=== PATIENT | male | born 1960 | race Caucasian/White ===

== ENCOUNTER → 2016-03-17 | Outpatient (CLI) | payer OTHER ==
[~2016-03-17] MED LIST: AMIT75 PO; ARIP15TA3 PO; ASPI-1061 PO; BRIM15DR8 OU; BRIM15OS OU; BUME1TAB30 PO; CARV12 PO; DAPT500I IVP; DORZ210OS OP; DOXY100C PO; FOLI1 PO; FURO20 PO; GABA-531 PO; INSLAN SQ; INSNOV SQ; IPRA4AER IH; ISOS20TA9 PO; LATA2.5D2 OU; MACR100 PO; MAXIO OD; METR500 PO; OMEP20 PO; SERT50TA12 PO; SIMV-260 PO; SPIR25 PO; SULF-168 PO; VITAD1000 PO
[2016-03-17 14:02] VITALS: BP 124/80
== END | disposition home or self-care (01) ==
LOC: HBOWC 13:00
PROVIDERS: ATTEND Emergency Medicine
DX: E11.621 Type 2 diabetes mellitus with foot ulcer (principal); L97.521 Non-pressure chronic ulcer of other part of left foot limited to breakdown of skin; E11.69 Type 2 diabetes mellitus with other specified complication; M86.8X7 Other osteomyelitis, ankle and foot; I50.20 Unspecified systolic (congestive) heart failure; L84 Corns and callosities; L60.3 Nail dystrophy; F20.9 Schizophrenia, unspecified; B35.1 Tinea unguium
CPT/HCPCS: 97597

== ENCOUNTER → 2016-03-31 | Outpatient (CLI) | payer OTHER ==
[~2016-03-31] MED LIST changes: -METR500 PO
[2016-03-31 13:57] VITALS: BP 106/72
== END | disposition home or self-care (01) ==
LOC: HBOWC 12:38
PROVIDERS: ATTEND Emergency Medicine
DX: E11.621 Type 2 diabetes mellitus with foot ulcer (principal); L97.521 Non-pressure chronic ulcer of other part of left foot limited to breakdown of skin; E11.69 Type 2 diabetes mellitus with other specified complication; M86.8X7 Other osteomyelitis, ankle and foot; B35.1 Tinea unguium; F20.9 Schizophrenia, unspecified; I50.20 Unspecified systolic (congestive) heart failure; L84 Corns and callosities; L60.3 Nail dystrophy
CPT/HCPCS: 97597

== ENCOUNTER → 2016-04-14 | Outpatient (CLI) | payer OTHER ==
[2016-04-14 13:58] VITALS: BP 145/81
== END | disposition home or self-care (01) ==
LOC: HBOWC 13:08
PROVIDERS: ATTEND Emergency Medicine
DX: E11.621 Type 2 diabetes mellitus with foot ulcer (principal); L97.521 Non-pressure chronic ulcer of other part of left foot limited to breakdown of skin; E11.69 Type 2 diabetes mellitus with other specified complication; M86.8X7 Other osteomyelitis, ankle and foot; F20.9 Schizophrenia, unspecified; L84 Corns and callosities; B35.1 Tinea unguium; L60.3 Nail dystrophy; I50.20 Unspecified systolic (congestive) heart failure
CPT/HCPCS: 97597

== ENCOUNTER → 2016-04-28 | Outpatient (CLI) | payer OTHER ==
[~2016-04-28] MED LIST changes: -FURO20 PO
[2016-04-28 13:56] VITALS: BP 139/78
== END | disposition home or self-care (01) ==
LOC: HBOWC 12:48
PROVIDERS: ATTEND Emergency Medicine
DX: E11.621 Type 2 diabetes mellitus with foot ulcer (principal); L97.521 Non-pressure chronic ulcer of other part of left foot limited to breakdown of skin; E11.69 Type 2 diabetes mellitus with other specified complication; M86.8X7 Other osteomyelitis, ankle and foot; I50.20 Unspecified systolic (congestive) heart failure; L60.3 Nail dystrophy; F20.9 Schizophrenia, unspecified; L84 Corns and callosities
CPT/HCPCS: 97597

== ENCOUNTER → 2016-05-12 | Outpatient (CLI) | payer OTHER ==
[~2016-05-12] MED LIST changes: -DAPT500I IVP; -SIMV-260 PO; +SIMV20 PO
[2016-05-12 14:43] VITALS: BP 125/73
== END | disposition home or self-care (01) ==
LOC: HBOWC 13:56
PROVIDERS: ATTEND Emergency Medicine
DX: E11.621 Type 2 diabetes mellitus with foot ulcer (principal); L97.521 Non-pressure chronic ulcer of other part of left foot limited to breakdown of skin; E11.69 Type 2 diabetes mellitus with other specified complication; M86.8X7 Other osteomyelitis, ankle and foot; Z87.440 Personal history of urinary (tract) infections; F20.9 Schizophrenia, unspecified; L84 Corns and callosities; L60.3 Nail dystrophy; I50.20 Unspecified systolic (congestive) heart failure; B35.1 Tinea unguium
CPT/HCPCS: 97597